=== PATIENT | female | born 1945 | race Caucasian/White ===

== ENCOUNTER → 2017-09-15 | Outpatient (CLI) | payer OTHER ==
[~2017-09-15] MED LIST: COMBIVENT INH; DUONEB 2.5-0.5 M3 ML INH; FLONASE 0.05%50 MCG NASAL; HYDROCODONE-AP1 EAC6 PO; LEVAQUIN 750 M750 MG PO; MUCINEX600 MG PO; PREDNISONE 10 M10 MG PO; PREDNISONE 20 M20 MG PO; PREMARIN0.3 MG PO; PROVERA2.5 MG PO; TRAMADOL 50 MG50 MG PO; VALACYCLOVIR1000 MG PO
== END ==
LOC: RAD 09:11
DX: J18.9 Pneumonia, unspecified organism (principal)

== ENCOUNTER 2017-10-03 20:58 | Emergency (ER) | payer OTHER ==
[~2017-10-03] VITALS: Ht 162.6 cm; Wt 61.2 kg
[~2017-10-03 20:58] MED LIST changes: -DUONEB 2.5-0.5 M3 ML INH; -HYDROCODONE-AP1 EAC6 PO; -LEVAQUIN 750 M750 MG PO; -MUCINEX600 MG PO; -PREDNISONE 10 M10 MG PO; -TRAMADOL 50 MG50 MG PO; -VALACYCLOVIR1000 MG PO
[2017-10-03] MEDS ORDERED: VALACYCLOVIR1000 MG PO (21:22)
[2017-10-03] MEDS ORDERED: HYDROCODONE-AP1 EAC6 PO (21:22)
[2017-10-03] MEDS ORDERED: TRAMADOL 50 MG50 MG PO (21:22)
[2017-10-03 22:09] VITALS: BP 134/68
== END 2017-10-03 22:11 | disposition home or self-care (01) ==
LOC: ER 20:58
DX: B02.9 Zoster without complications (principal); Z88.0 Allergy status to penicillin; Z88.2 Allergy status to sulfonamides; Z87.891 Personal history of nicotine dependence

== ENCOUNTER 2017-11-08 11:49 | Inpatient (IN) | payer OTHER ==
[~2017-11-08] VITALS: Ht 160 cm; Wt 68.0 kg
--- NOTE | ~2017-11-08 | EKG ---
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
--- NOTE | ~2017-11-08 | EKG ---
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
[~2017-11-08 11:49] MED LIST changes: +HYDROCODONE-AP1 EAC6 PO; +TRAMADOL 50 MG50 MG PO; +VALACYCLOVIR1000 MG PO
[2017-11-08 11:52] VITALS: BP 155/106
[2017-11-08 13:04] LABS: HEMATOCRIT 43.4 % (37.0-47.0); HEMOGLOBIN 14.6 gm/dL (12.0-15.0); MCH 32.6 pg (26.0-34.0); MCHC 33.6 g/dL (28.0-37.0); MCV 97.1 fL (80.0-100.0); RBC 4.47 mil/uL (4.20-5.00); RDW 14.8 % (10.5-14.5); WBC 13.7 thou/uL (4.0-11.0)
[2017-11-08 13:08] LABS: ANION GAP 8 mmol/L (7-16); BUN 20 mg/dL (7-18); CALCIUM 9.9 mg/dL (8.5-10.1); CHLORIDE 105 mmol/L (98-107); CO2 27 mmol/L (21-32); CREATININE 0.9 mg/dL (0.6-1.0); GLUCOSE 96 mg/dL (74-106); POTASSIUM 3.7 mmol/L (3.5-5.1); SODIUM 140 mmol/L (136-145)
[2017-11-08 13:17] LABS: TROPONIN-I < 0.04 ng/mL (<0.06)
[2017-11-08 16:19] VITALS: BP 155/106
[2017-11-08 17:16] VITALS: BP 152/89
[2017-11-08 17:27] VITALS: BP 158/92
[2017-11-08 19:03] VITALS: BP 148/85
[2017-11-08 19:37] LABS: BE(vivo) -1.3 mmol/L (-2 to +3); HCO3 22.1 mmol/L (22.0-26.0); PCO2 33.4 mmHg (35.0-45.0); PO2 70.5 mmHg (80.0-100.0); pH 7.438 (7.360-7.450); sO2 94.9 % (92.0-98.0)
[2017-11-08 23:47] VITALS: BP 125/66
[2017-11-09 03:41] VITALS: BP 123/62
[2017-11-09 07:59] VITALS: BP 138/66
[2017-11-09 16:29] VITALS: BP 133/68
[2017-11-09 17:04] LABS: BE(vivo) -0.7 mmol/L (-2 to +3); HCO3 22.2 mmol/L (22.0-26.0); PCO2 32.1 mmHg (35.0-45.0); PO2 67.7 mmHg (80.0-100.0); pH 7.458 (7.360-7.450); sO2 94.6 % (92.0-98.0)
[2017-11-09 17:41] LABS: HEMATOCRIT 44.1 % (37.0-47.0); HEMOGLOBIN 14.3 gm/dL (12.0-15.0); MCHC 32.5 g/dL (28.0-37.0); MCV 98.5 fL (80.0-100.0); RBC 4.47 mil/uL (4.20-5.00); RDW 15.4 % (10.5-14.5); WBC 22.6 thou/uL (4.0-11.0)
[2017-11-09 17:51] LABS: ALBUMIN 3.4 g/dL (3.4-5.0); CREATININE 1.1 mg/dL (0.6-1.0); MAGNESIUM 2.1 mg/dL (1.8-2.4); POTASSIUM 4.2 mmol/L (3.5-5.1); TOTAL BILIRUBIN 0.2 mg/dL (<0.1-1.0); TOTAL PROTEIN 6.6 g/dL (6.4-8.2)
[2017-11-09 19:51] VITALS: BP 151/82
[2017-11-10 04:02] VITALS: BP 143/81
[2017-11-10 05:50] LABS: HEMATOCRIT 41.3 % (37.0-47.0); HEMOGLOBIN 13.8 gm/dL (12.0-15.0); MCH 32.5 pg (26.0-34.0); MCHC 33.3 g/dL (28.0-37.0); MCV 97.4 fL (80.0-100.0); RBC 4.24 mil/uL (4.20-5.00); RDW 15.4 % (10.5-14.5); WBC 19.9 thou/uL (4.0-11.0)
[2017-11-10 06:06] LABS: CALCIUM 9.4 mg/dL (8.5-10.1); MAGNESIUM 1.9 mg/dL (1.8-2.4); POTASSIUM 4.3 mmol/L (3.5-5.1)
[2017-11-10 08:00] VITALS: BP 139/78
[2017-11-10 16:00] VITALS: BP 135/82
[2017-11-10] MEDS ORDERED: MUCINEX600 MG PO (16:47)
[2017-11-10] MEDS ORDERED: PREDNISONE 10 M10 MG PO (16:56)
[2017-11-10] MEDS ORDERED: LEVAQUIN 750 M750 MG PO (16:57)
[2017-11-10] MEDS ORDERED: DUONEB 2.5-0.5 M3 ML INH (17:06)
[2017-11-10 17:10] VITALS: BP 135/82
== END 2017-11-10 18:40 | disposition home or self-care (01) | DRG 191 ==
LOC: ER 11:49 → EROBS 14:24 → 4W 14:24 → ENTRNSPT 11-10 18:34 → 4W 11-10 18:40
PROVIDERS: Emergency Medicine; Internal Medicine; Internal Medicine Pulmonary Disease
DX: J44.1 Chronic obstructive pulmonary disease with (acute) exacerbation (principal); E87.2 Acidosis; F17.210 Nicotine dependence, cigarettes, uncomplicated; D72.829 Elevated white blood cell count, unspecified; T38.0X5A Adverse effect of glucocorticoids and synthetic analogues, initial encounter; F41.9 Anxiety disorder, unspecified; Y92.89 Other specified places as the place of occurrence of the external cause; Z71.6 Tobacco abuse counseling; Z79.51 Long term (current) use of inhaled steroids; Z79.899 Other long term (current) drug therapy; Z88.0 Allergy status to penicillin; Z88.2 Allergy status to sulfonamides
CPT/HCPCS: 10045

== ENCOUNTER 2018-07-23 22:37 | Emergency (ER) | payer OTHER ==
[~2018-07-23] VITALS: Ht 162.6 cm; Wt 68.0 kg
[~2018-07-23 22:37] MED LIST changes: +DUONEB 2.5-0.5 M3 ML INH; +LEVAQUIN 750 M750 MG PO; +MUCINEX600 MG PO; +PREDNISONE 10 M10 MG PO
[2018-07-23 23:24] LABS: HEMATOCRIT 41.4 % (37.0-47.0); HEMOGLOBIN 14.1 gm/dL (12.0-15.0); MCH 32.2 pg (26.0-34.0); MCV 94.6 fL (80.0-100.0); RBC 4.38 mil/uL (4.20-5.00); RDW 14.2 % (10.5-14.5); WBC 7.8 thou/uL (4.0-11.0)
[2018-07-23 23:34] LABS: ANION GAP 8 mmol/L (7-16); BUN 22 mg/dL (7-18); CALCIUM 9.8 mg/dL (8.5-10.1); CHLORIDE 105 mmol/L (98-107); CO2 26 mmol/L (21-32); CREATININE 0.9 mg/dL (0.6-1.0); GLUCOSE 114 mg/dL (74-106); SODIUM 139 mmol/L (136-145)
[2018-07-23 23:42] LABS: TROPONIN-I <0.06 ng/mL (<0.06)
[2018-07-24] MEDS ORDERED: PREDNISONE 10 M10 M1 PO (01:29)
[2018-07-24 02:17] VITALS: BP 152/68
--- NOTE | 2018-07-24 22:14 | EKG ---
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 : 1945 Requested By: Jose Luis Mcmahon Order Number: [id number] MD: Asa Thorne Measurements Intervals [place] Rate: 82 P: 77 [place]: 133 QRS: 14 QRSD: 97 T: 62 QT: 377 QTc: 441 Interpretive Statements Sinus rhythm Probable left atrial enlargement Low voltage, extremity leads Baseline wander in lead(s) II,V3 Compared to ECG 11/09/2017 12:58:19 Low QRS voltage now present Electronically Signed On 07-24-2018 22:14:07 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
== END 2018-07-24 02:19 | disposition home or self-care (01) ==
LOC: ER 22:37
PROVIDERS: Emergency Medicine
DX: J44.1 Chronic obstructive pulmonary disease with (acute) exacerbation (principal); F17.210 Nicotine dependence, cigarettes, uncomplicated; Z88.0 Allergy status to penicillin; Z88.2 Allergy status to sulfonamides